=== PATIENT | male | born 1960 | race American Indian/Alaskan Native ===

== ENCOUNTER 2018-12-10 11:20 | Emergency (ER) | payer MEDICAID, SELFPAY ==
[2018-12-10 11:20] VITALS: BMI 21.9
[2018-12-10 11:27] VITALS: BP 113/72; PULSE 54; RESP 16; TEMP 97.5; O2SAT 98
--- NOTE | 2018-12-10 11:57 | C.PDOC ---
History Of Present Illness 58 y/o male presents to the ER complaining of left ear pain which began yesterday. Patient states that he has chronic history of cerumen impaction in bilateral ears. Patient reports that he constantly uses Q- tips and other objects to remove wax. He notes that he used a td pin yesterday but he was not able to remove much wax from the ear. So, he used Q-tip and he has 5/10 pain since he used the Q- tip. He states that he did not use any medications for the pain. Denies having hearing loss, tinnitis, vertigo, headache, nausea, and vomiting. Time Seen by Provider: 12/10/18 11:45 Chief Complaint (Nursing): ENT Problem History Per: Patient History/Exam Limitations: None Onset/Duration Of Symptoms: Days Current Symptoms Are (Timing): Still Present Severity: Moderate Past Medical History Reviewed: Historical Data, Nursing Documentation, Vital Signs Vital Signs: Last Vital Signs Temp 97.5 F L 12/10/18 11:23 Pulse 54 L 12/10/18 11:23 Resp 16 12/10/18 11:23 BP 113/72 12/10/18 11:23 Pulse Ox 98 12/10/18 11:23 - Medical History PMH: Bronchitis Denies: Chronic Kidney Disease Surgical History: Endoscopy - [facility] Procedures COLONOSCOPY (01/05/14) ESOPHAGOGASTRODUODENOSCOPY [EGD] W/CLOSED BIOPSY (11/24/13) Family History: States: No Known Family Hx - Social History Hx Tobacco Use: No Hx Alcohol Use: Yes (socially) Hx Substance Use: No - Immunization History Hx Tetanus Toxoid Vaccination: No Hx Influenza Vaccination: No Hx Pneumococcal Vaccination: No Review Of Systems Constitutional: Negative for: Fever, Chills ENT: Positive for: Ear Pain (left ear pain) Gastrointestinal: Negative for: Nausea, Vomiting Neurological: Negative for: Headache Physical Exam - Physical Exam Appears: Well, Non-toxic, No Acute Distress Skin: Normal Color, Warm, Dry Head: Atraumatic, Normacephalic Eye(s): bilateral: Normal Inspection Ear(s): Bilateral: TM Obscured By Wax (hard dry cerumen), Other (mild erythema to left canal but difficult to assess secondary to cerumen) Nose: Normal Oral Mucosa: Moist Neck: Normal ROM, Supple Chest: Symmetrical Cardiovascular: Rhythm Regular Respiratory: Normal Breath Sounds Neurological/Psych: Oriented x3, Normal Speech ED Course And Treatment O2 Sat by Pulse Oximetry: 98 (RA) Pulse Ox Interpretation: Normal Medical Decision Making Medical Decision Making: Plan: --Motrin PO Disposition Counseled Patient/Family Regarding: Diagnosis, Need For Followup, Rx Given - Disposition Referrals: Samuel Gill MD [Staff Provider] - Disposition: HOME/ ROUTINE Disposition Time: 11:53 Condition: STABLE Additional Instructions: Avoid using Q-tips Start Debrox drops twice a day for 7 days Follow up with ENT in 1-2 days Return to ED if symptoms worsen Prescriptions: Carbamide Peroxide [Debrox 15 Ml] 5 drop BID #1 bottle Ibuprofen [Motrin] 600 mg PO Q8 PRN #24 tab PRN Reason: Pain, Moderate (4-7) Instructions: Ear Wax Impaction (DC) Forms: [employer] (Armenian) - Clinical Impression Clinical Impression: Impacted cerumen of left ear, Otitis externa of left ear - PA / BORDER PATROL AGENT / Resident Statement MD/DO has reviewed & agrees with the documentation as recorded. - Scribe Statement The provider has reviewed the documentation as recorded by the Nanibe Ginny Ravi Provider Attestation All medical record entries made by the Scribe were at my direction and personally dictated by me. I have reviewed the chart and agree that the record accurately reflects my personal performance of the history, physical exam, medical decision making, and the department course for this patient. I have also personally directed, reviewed, and agree with the discharge instructions and disposition.
== END 2018-12-10 12:06 | disposition home or self-care (01) ==
LOC: C.ER 11:20
DX: H61.22 Impacted cerumen, left ear (principal); H60.92 Unspecified otitis externa, left ear